=== PATIENT | female | born 1970 | race Caucasian/White ===

== ENCOUNTER 2022-02-17 14:12 | Emergency (ER) | payer OTHER ==
[~2022-02-17] VITALS: Ht 154.9 cm; Wt 74.8 kg
== END 2022-02-17 17:57 | disposition left against medical advice (07) ==
LOC: ER 14:12
DX: Z53.21 Procedure and treatment not carried out due to patient leaving prior to being seen by health care provider (principal)
CPT/HCPCS: 99282

== ENCOUNTER 2024-06-02 16:42 | Emergency (ER) | payer MEDICARE ==
[~2024-06-02] VITALS: Ht 170.2 cm; Wt 75.8 kg
[2024-06-02] MEDS ORDERED: LORazepam 2 MG/ML 1ML Injection ONE (16:59)
[2024-06-02] MEDS ORDERED: NS 1,000 ML IV ONE (16:59)
[2024-06-02] MEDS ORDERED: LORazepam 2 MG/ML 1ML Injection IV ONE (17:00)
[2024-06-02] MEDS ORDERED: NS 1,000 ML IV SCH (17:05)
[2024-06-02 17:11] LABS: Source, Urine Clean Catch
[2024-06-02 17:16] LABS: BASOPHILS ABSOLUTE AUTO 0.02 K/mm3 (0.00-0.23); BASOPHILS PERCENT AUTO 0 % (0-2); EOSINOPHILS ABSOLUTE AUTO 0.04 K/mm3 (0.00-0.68); EOSINOPHILS PERCENT AUTO 0 % (0-6); Hematocrit 41.6 % (33.0-51.0); Hemoglobin 14.4 g/dL (11.5-16.0); IMMATURE GRAN ABSOLUTE AUTO 0.03 K/mm3 (0.00-0.10); IMMATURE GRAN PERCENT AUTO 0 % (0-1); LYMPHOCYTES ABSOLUTE AUTO 3.22 K/mm3 (0.84-5.20); LYMPHOCYTES PERCENT AUTO 34 % (21-46); MONOCYTES ABSOLUTE AUTO 0.47 K/mm3 (0.16-1.47); MONOCYTES PERCENT AUTO 5 % (4-13); Mean Corpuscular HGB 30.2 pg (26.0-34.0); Mean Corpuscular HGB Conc 34.6 g/dL (31.5-36.5); Mean Corpuscular Volume 87 fL (80-100); Mean Platelet Volume 8.1 fL (9.1-12.4); NEUTROPHILS ABSOLUTE AUTO 5.66 K/mm3 (1.96-9.15); NEUTROPHILS PERCENT AUTO 60 % (41-73); Platelet Count 307 K/mm3 (150-400); RDW Coefficient Variation 11.8 % (11.7-14.2); RDW Standard Deviation 37.9 fL (35.1-46.3); Red Blood Cell Count 4.77 M/mm3 (3.80-5.20); White Blood Cell Count 9.44 K/mm3 (4.00-11.30)
[2024-06-02] MEDS ORDERED: Methocarbamol500 MG PO (17:16)
[2024-06-02 17:17] LABS: Appearance, Urine Clear (Clear); Bilirubin, Urine Neg (Neg); Blood, Urine 1+ (Neg); Color, Urine Yellow (P-Yellow); Glucose Qualitative, Urine Neg (Neg); Ketones, Urine Neg (Neg); Leukocyte Esterase, Urine Neg (Neg); Nitrite, Urine Neg (Neg); Protein, Urine 1+ (Neg); Specific Gravity, Urine 1.015 (1.003-1.022); Urobilinogen, Urine NORM (Normal)
[2024-06-02] MEDS ORDERED: VENLAFAXINE HC225 MG PO (17:17)
[2024-06-02] MEDS ORDERED: BUPRENORP-NALO1 EAC3 SL (17:17)
[2024-06-02] MEDS ORDERED: Propranolol HCl60 MG PO (17:17)
[2024-06-02] MEDS ORDERED: OLANZAPINE5 M1 PO (17:17)
[2024-06-02] MEDS ORDERED: BUPROPION HCL200 M1 PO (17:19)
[2024-06-02 17:22] LABS: Bacteria Few /hpf; Squamous Epithelial Cells Few /hpf (Few); White Blood Cells, Urine 0-2 /hpf (0-5)
[2024-06-02 17:25] LABS: U Amphetamine Screen DETECTED; U Methamphetamine Screen DETECTED
[2024-06-02 17:26] LABS: U Barbituate Screen Not Detected; U Benzodiazapine Screen Not Detected; U Buprenorphine Screen DETECTED; U Cannabinoids Screen Not Detected; U Cocaine Screen Not Detected; U Methadone Screen Not Detected; U Opiates Screen Not Detected; U Oxycodone Screen DETECTED; U Phencyclidine Screen Not Detected
[2024-06-02 17:37] LABS: Albumin, Blood 3.7 g/dL (3.4-5.0); Bilirubin, Total 0.3 mg/dL (0.1-1.0); Bun/Creatinine Ratio 16.3 (12.0-20.0); Calcium, Blood 9.4 mg/dL (8.5-10.1); Creatinine, Blood 0.86 mg/dL (0.40-1.00); Globulin, Blood 3.7 g/dL (2.2-4.0); Magnesium, Blood 2.1 mg/dL (1.6-2.4); Potassium, Blood 3.3 mmol/L (3.5-5.5); Total Protein, Blood 7.4 g/dL (6.4-8.2)
[2024-06-02] MEDS ORDERED: Haloperidol Lactate Inj. 5 MG/ML Injection IV ONE (17:50)
[2024-06-02 18:00] LABS: CORONAVIRUS COVID-19 AG Negative (NEGATIVE); INFLUENZA A AG Negative (NEGATIVE); INFLUENZA B AG Negative (NEGATIVE)
[2024-06-02] MEDS ORDERED: Diazepam 5 MG Tab PO ONE (18:50)
[2024-06-02 19:52] VITALS: BP 137/79
== END 2024-06-02 19:53 | disposition home or self-care (01) ==
LOC: ER 16:42
PROVIDERS: Student in an Organized Health Care Education/Training Program
DX: F41.9 Anxiety disorder, unspecified (principal); R45.1 Restlessness and agitation; F15.93 Other stimulant use, unspecified with withdrawal
CPT/HCPCS: 71045; 80053; 81001; 83735; 84484; 85025; 87428-QW; 93005; 93010; 96361; 96374; 96375; 99285-25; A9270; J1630; J2060; J7030; P9612

== ENCOUNTER 2024-06-12 11:02 | Emergency (ER) | payer MEDICARE ==
[~2024-06-12] VITALS: Ht 167.6 cm; Wt 72.6 kg
[~2024-06-12 11:02] MED LIST: BUPRENORP-NALO1 EAC3 SL; BUPROPION HCL200 M1 PO; Methocarbamol500 MG PO; OLANZAPINE5 M1 PO; Propranolol HCl60 MG PO; VENLAFAXINE HC225 MG PO
[2024-06-12 11:49] LABS: CORONAVIRUS COVID-19 AG Negative (NEGATIVE); INFLUENZA A AG Negative (NEGATIVE); INFLUENZA B AG Negative (NEGATIVE)
[2024-06-12 14:47] LABS: BASOPHILS ABSOLUTE AUTO 0.03 K/mm3 (0.00-0.23); BASOPHILS PERCENT AUTO 1 % (0-2); EOSINOPHILS ABSOLUTE AUTO 0.02 K/mm3 (0.00-0.68); EOSINOPHILS PERCENT AUTO 0 % (0-6); Hemoglobin 15.7 g/dL (11.5-16.0); IMMATURE GRAN ABSOLUTE AUTO 0.01 K/mm3 (0.00-0.10); IMMATURE GRAN PERCENT AUTO 0 % (0-1); LYMPHOCYTES ABSOLUTE AUTO 3.15 K/mm3 (0.84-5.20); LYMPHOCYTES PERCENT AUTO 60 % (21-46); MONOCYTES ABSOLUTE AUTO 0.44 K/mm3 (0.16-1.47); MONOCYTES PERCENT AUTO 8 % (4-13); Mean Corpuscular HGB 29.8 pg (26.0-34.0); Mean Corpuscular HGB Conc 33.4 g/dL (31.5-36.5); Mean Corpuscular Volume 89 fL (80-100); Mean Platelet Volume 8.1 fL (9.1-12.4); NEUTROPHILS PERCENT AUTO 30 % (41-73); Platelet Count 239 K/mm3 (150-400); RDW Coefficient Variation 12.1 % (11.7-14.2); RDW Standard Deviation 39.6 fL (35.1-46.3); Red Blood Cell Count 5.26 M/mm3 (3.80-5.20); White Blood Cell Count 5.25 K/mm3 (4.00-11.30)
[2024-06-12 15:02] LABS: Albumin, Blood 3.7 g/dL (3.4-5.0); Albumin/Globulin Ratio 0.9 (0.8-1.8); Bilirubin, Total 0.3 mg/dL (0.1-1.0); Bun/Creatinine Ratio 20.7 (12.0-20.0); Calcium, Blood 9.4 mg/dL (8.5-10.1); Creatinine, Blood 0.87 mg/dL (0.40-1.00); Globulin, Blood 3.9 g/dL (2.2-4.0); Potassium, Blood 4.1 mmol/L (3.5-5.5); Total Protein, Blood 7.6 g/dL (6.4-8.2)
[2024-06-12 16:15] VITALS: BP 126/82
== END 2024-06-12 16:34 | disposition home or self-care (01) ==
LOC: ER 11:02
PROVIDERS: Student in an Organized Health Care Education/Training Program
DX: R06.02 Shortness of breath (principal); R42 Dizziness and giddiness; Z79.899 Other long term (current) drug therapy
CPT/HCPCS: 71046; 71260; 80053; 84484; 85025; 85379; 87428-QW; 93005; 93010; 99285-25; Q9967

== ENCOUNTER 2025-01-14 08:26 | Emergency (ER) | payer OTHER ==
[~2025-01-14] VITALS: Ht 157.5 cm; Wt 77.1 kg
[2025-01-14 08:51] VITALS: BP 152/91
[2025-01-14] MEDS ORDERED: Norco 5-325 Ta1 EACH PO (10:17)
== END 2025-01-14 10:46 | disposition home or self-care (01) ==
LOC: ER 08:26
DX: M25.562 Pain in left knee (principal); M79.661 Pain in right lower leg; F43.10 Post-traumatic stress disorder, unspecified; Z79.899 Other long term (current) drug therapy
CPT/HCPCS: 70450; 71046; 73562-LT; 73610; 99284-25